=== PATIENT | female | born 1975 ===

== ENCOUNTER 2018-08-06 09:41 | Emergency (ER) | payer OTHER ==
[2018-08-06 10:27] VITALS: BP 134/82; PULSE 82; RESP 18; TEMP 98.2; O2SAT 100
--- NOTE | 2018-08-06 11:21 | C.PDOC ---
History Of Present Illness 42 year old female presents to the ED for evaluation of right breast itching and redness for 1 week. Pt was evaluated at the clinic on the and prescribed a 10 day course antibiotic of augmentin and a mammogram. Pt states she has been taking the antibiotic and notes improvement of the redness. Admits to h/o nipple discharge occasionally for "years" after having her children. Also notes no recent change in nipple shape, always inverted. Denies fever, nausea, vomiting, chest pain, sob, abdominal pain, dizziness and any other associated symptoms. Time Seen by Provider: 08/06/18 10:25 Chief Complaint (Nursing): Medical Clearance History Per: Patient, Distributor Sales Consultant (Heydi Jarrett) History/Exam Limitations: no limitations Onset/Duration Of Symptoms: Days Current Symptoms Are (Timing): Still Present Past Medical History Reviewed: Historical Data, Nursing Documentation, Vital Signs Vital Signs: Last Vital Signs Temp 98.2 F 08/06/18 10:25 Pulse 82 08/06/18 10:25 Resp 18 08/06/18 10:25 BP 134/82 08/06/18 10:25 Pulse Ox 100 08/06/18 10:25 Surgical History: Cholecystectomy Family History: States: Unknown Family Hx - Social History Hx Alcohol Use: No Hx Substance Use: No - Immunization History Hx Tetanus Toxoid Vaccination: Yes Hx Influenza Vaccination: Yes Hx Pneumococcal Vaccination: No Review Of Systems Except As Marked, All Systems Reviewed And Found Negative. Constitutional: Negative for: Fever, Chills Gastrointestinal: Negative for: Nausea, Vomiting Musculoskeletal: Positive for: Other (right breast itching and redness.) Physical Exam - Physical Exam Appears: Well, Non-toxic, No Acute Distress Skin: Warm, Dry, Other (right breast: mild erythema. ) Head: Atraumatic, Normacephalic Eye(s): bilateral: Normal Inspection, EOMI Nose: Normal Oral Mucosa: Moist Neck: Normal ROM, Supple Chest: Symmetrical, No Deformity, Other (right breast: non-tender. right nipple is mildy inverted with erythema and induration. No discahrge or dimpling.) Cardiovascular: Rhythm Regular Respiratory: Normal Breath Sounds, No Rales, No Rhonchi, No Wheezing Extremity: Normal ROM Neurological/Psych: Oriented x3, Normal Speech Gait: Steady ED Course And Treatment O2 Sat by Pulse Oximetry: 100 (RA) Pulse Ox Interpretation: Normal Progress Note: Plan: US Breast Unilateral RT to r/o abscess. It was discussed with pt can not do mammogram in ER and the strict importance to get one done. Patient left before further evaluation. Disposition - Disposition Disposition: ELOPEMENT - ER ONLY Disposition Time: 10:30 Condition: STABLE Forms: [facility] (Swiss) - Clinical Impression Clinical Impression: Pain of right breast - PA / TRAVEL AGENT / Resident Statement MD/DO has reviewed & agrees with the documentation as recorded. - Scribe Statement The provider has reviewed the documentation as recorded by the Scribe (Heydi Nash) All medical record entries made by the Scribe were at my direction and personally dictated by me. I have reviewed the chart and agree that the record accurately reflects my personal performance of the history, physical exam, medical decision making, and the department course for this patient. I have also personally directed, reviewed, and agree with the discharge instructions and disposition.
== END 2018-08-06 11:55 | disposition left against medical advice (07) ==
LOC: C.ER 09:41
DX: N64.4 Mastodynia (principal)